=== PATIENT | male | born 1960 | race Caucasian/White ===

== ENCOUNTER 2019-01-08 10:46 | Inpatient (IN) | payer OTHER ==
--- OUTSIDE RECORDS SUMMARY | 2019-01-08 10:48 | XMS REPORT ---
:1960 [facility] Address [address] [place] [address] Dr. Garcia [address] [place] [id number] Care Team Providers Name Role Phone Unavailable Unavailable Unavailable Problems This patient has no known problems. Allergies, Adverse Reactions, Alerts This patient has no known allergies or adverse reactions. Medications This patient has no known medications.
[2019-01-08] MEDS ORDERED: ACETAMINOPHEN 500 MG TAB ONE (11:17)
--- NOTE | 2019-01-08 11:49 | RAD REPORT ---
EXAM DESCRIPTION: Samantha Single View01/08/2019 11:40 am CLINICAL HISTORY: Cough COMPARISON: January 06, 2019 FINDINGS: The lungs appear clear of acute infiltrate. The heart is normal size IMPRESSION: No acute abnormalities displayed
[2019-01-08 11:51] LABS: Absolute Lymphocytes (CBC) 0.6 K/uL (0.7-4.9); Basophils % 0.2 % (0-1.3); Hematocrit 44.8 % (39.6-49.0); Lymphocytes % 7.5 % (15.3-44.8); MPV 8.2 fL (7.6-11.3); RBC Red Blood Cell Count 4.96 M/uL (4.33-5.43)
[2019-01-08 11:53] LABS: Arterial Blood Carboxyhemoglob 1.3 % (0-1.5); Blood O2 Saturation 93.8 % (92-98.5)
[2019-01-08 11:57] LABS: Protime INR 0.88
[2019-01-08] MEDS ORDERED: CEFTRIAXONE/SWI 1gm 1 GM/10 ML SYR ONE (11:57)
[2019-01-08] MEDS ORDERED: VANCOMYCIN 1.5 GM in NA CHLORIDE 0.9% 500 ML IVPB ONE ×2 (12:00→18:00)
[2019-01-08 12:19] LABS: Blood Morphology Comment NOT SEEN (NOT SEEN); Platelet Estimate ADEQ
[2019-01-08 12:23] LABS: Albumin 3.6 g/dL (3.4-5.0); Bilirubin Direct 0.2 mg/dL (0-0.2); Bilirubin Total 0.6 mg/dL (0.2-1.0); CKMB Creatine Kinase MB 2.3 ng/mL (0.3-3.6); Protein, Total 7.2 g/dL (6.4-8.2); Troponin (Emerg Dept Use Only) 0.05 ng/mL (0.0-0.045)
--- NOTE | 2019-01-08 13:03 | RAD REPORT ---
EXAM DESCRIPTION: CT - Chest Abdomen Pelvis W Cont - 01/08/2019 12:47 pm CLINICAL HISTORY: Transient alteration of awareness, fever, cough, history of pneumonia, abdominal p ain COMPARISON: Noncontrast CT chest July 2014. TECHNIQUE: Following dynamic enhancement using 100 milliliters nonionic IV contrast, axial imaging o f the chest, abdomen and pelvis was performed. Biphasic technique was utilized through the abdomen. No oral contrast administered. All CT scans are performed using dose optimization technique as appropriate and may include automated exposure control or mA/KV adjustment according to patient size. FINDINGS: Scattered alveolar opacities are present in the mid and lower aspect of the left upper lob e. Airspace opacification is scattered throughout the left lower lobe. Motion degradation is present involving both lung gale. No significant lung parenchymal process on the right. No pleural effusion , pleural thickening or pneumothorax. No significant aortic or pulmonary arterial tree finding. Patie nt has a few small nonspecific mediastinal lymph nodes. These are not substantially different from 20 15. No chest wall mass or axillary lymphadenopathy. Heart size is upper normal to slightly enlarged. Left ventricular myocardium is slightly thickened. CT sensitivity is limited regarding myocardial ass essment. There is no pericardial effusion. The liver, spleen and pancreas show no suspicious findings. Gallbladder and biliary tree are unremark able. Gallstones can be occult on CT imaging. Symmetric renal function is seen with no mass or hydro nephrosis. A small cyst present posterior mid left kidney. There is a large exophytic 6 centimeter be nign cyst projecting from the upper pole of the right kidney. No dilated bowel loops or focal bowel wall thickening. No acute GI findings seen. Moderate stool volu me is present throughout the colon without an acute colon process seen. The appendix is normal. Bony degenerative changes are present. No acute finding in the thoracic spine. There are fusion grace es spanning L3-S1. No hardware fracture. Graft material is present in the lower [address] findings that would elevate probability of discitis or osteomyelitis. Central canal detail is inheren tly limited. No significant vascular findings. IMPRESSION: Small to moderate left upper lobe pneumonia findings. Moderate left lower lobe pneumonia findings. No acute findings seen in the abdomen or pelvis. Nonacute findings are detailed in the body of the re port. Patient has extensive postsurgical change in the mid and lower lumbar spine. Central canal detail is inherently limited. The CT findings do not show destructive changes that would raise concerns for dis citis or osteomyelitis.
--- NOTE | 2019-01-08 13:26 | ER ---
Nurse's Notes [facility] Name: Giovanny Barksdale Age: 58 yrs Sex: Male : 1960 Arrival Date: 01/08/2019 Time: 10:48 Bed 16 Private MD: Diagnosis: Pneumonia, unspecified organism;Failed outpatient treatment: pneumonia, early sepsis Presentation: 01/08 10:50 Presenting complaint: Patient states: i feel like disoriented, i dont feel good today, hj i have a fever with 99.8 and i was shaking; reports cough; was treated with pneumonia with Levaquin early this year;. Transition of care: patient was not received from another setting of care. Onset of symptoms was January 08, 2019. Risk Assessment: Do you want to hurt yourself or someone else? Patient reports no desire to harm self or others. Initial Sepsis Screen: Does the patient meet any 2 criteria? No. Patient's initial sepsis screen is negative. Does the patient have a suspected source of infection?. Care prior to arrival: None. 10:50 Method Of Arrival: Ambulatory 10:50 Acuity: CHRIS 3 10:55 Initial Sepsis Screen: Does the patient meet any 2 criteria? RR > 20 per min. HR > 90 hj bpm. Does the patient have a suspected source of infection? Yes: Productive cough/pneumonia No. Patient's initial sepsis screen is negative. Triage Assessment: 11:00 General: Appears distressed, comfortable, obese, Behavior is cooperative, listless. bp Historical: - Allergies: 10:54 Sulfa (Sulfonamide Antibiotics); hj - PMHx: 10:54 Asthma; Gout; Hyperlipidemia; Hypertension; hj - PSHx: 10:54 back surgery; hj - Immunization history:: Adult Immunizations. - Social history:: Smoking status: Patient/guardian denies using tobacco. - Ebola Screening: : No symptoms or risks identified at this time. Screenin:09 Abuse screen: Denies threats or abuse. Denies injuries from another. Nutritional aj screening: No deficits noted. Tuberculosis screening: No symptoms or risk factors identified. Fall Risk None identified. Assessment: 11:07 General: Appears in no apparent distress. comfortable, Behavior is calm, cooperative, aj appropriate for age. Pain: Denies pain. Neuro: Level of Consciousness is awake, alert, obeys commands, Oriented to person, place, time, situation, Appropriate for age. Respiratory: Reports shortness of breath at rest cough that is productive, Sputum is blood streaked, Derm: Skin is intact, is healthy with good turgor, Skin is pink, warm \T\ dry. normal. 13:43 Reassessment: Patient appears in no apparent distress at this time. No changes from aj previously documented assessment. Patient and/or family updated on plan of care and expected duration. Pain level reassessed. Patient is alert, oriented x 3, equal unlabored respirations, skin warm/dry/pink. Patient denies pain at this time. Vital Signs: 10:49 BP 137 / 55; Pulse 98; Resp 20; Temp 101.8(TE); Pulse Ox 90% on R/A; Weight 116.12 kg; hj Height 6 ft. 2 in. (187.96 cm); 11:54 BP 137 / 53; Pulse 81; Resp 12; Pulse Ox 94% on 2 lpm NC; aj 13:43 BP 124 / 54; Pulse 78; Resp 22; Pulse Ox 96% on 2 lpm NC; aj 14:24 BP 133 / 64; Pulse 81; Resp 13; Temp 98.9; Pulse Ox 97% ; bp 10:49 Body Mass Index 32.87 (116.12 kg, 187.96 cm) ED Course: 10:48 Patient arrived in ED. as 10:49 Alf Macario MD is Attending Physician. kdr 10:54 Triage completed. hj 10:54 Arm band placed on left wrist. hj 10:56 Kristina Horowitz, RN is Primary Nurse. aj 11:00 Patient has correct armband on for positive identification. Bed in low position. Call bp light in reach. Side rails up X2. 11:26 Inserted saline lock: 22 gauge in right upper arm, using aseptic technique. Blood aj collected. 11:40 EKG done, by ED staff, reviewed by Alf Macario MD. dh3 11:41 Chest Single View XRAY In Process Unspecified. EDMS 12:14 Notified ED physician of a critical lab result(s). lactate 2.4. hb 12:48 CT Chest, Abdomen, Pelvis - W/Contrast In Process Unspecified. EDMS 13:18 Randolph Garcia MD is Hospitalizing Provider. kdr 14:25 No provider procedures requiring assistance completed. Patient admitted, IV remains in bp place. Administered Medications: 11:19 Drug: Tylenol 1000 mg Route: PO; 12:30 Follow up: Response: Temperature is decreased bp 11:53 Drug: Rocephin - (cefTRIAXone) 1 grams Route: IVPB; Infused Over: 30 mins; Site: right aj antecubital; 14:21 Follow up: IV Status: Completed infusion; IV Intake: 20ml bp 12:13 Drug: vancoMYCIN 1.5 grams Route: IVPB; Rate: calculated rate; Site: right antecubital; aj 14:22 Follow up: IV Status: Infusion continued upon admission bp Intake: 14:21 IV: 20ml; Total: 20ml. bp Outcome: 13:25 Decision to Hospitalize by Provider. kdr 14:26 Admitted to Med/surg accompanied by tech, family with patient, via stretcher, room 409, bp with oxygen, with chart, Report called to ANKIT RIZVI 14:26 Condition: stable 14:26 Instructed on the need for admit. 14:34 Patient left the ED. bp Signatures: Dispatcher [employer] EDKristina Verduzco, RN RN Alf Kumar MD MD kdr Martinez, Amelia as Joaquin, Henry, RN RN Flaca Montano, DMITRI RIZVI Fartun Garber [facility] Wolfgang Duque, RN RN bp Corrections: (The following items were deleted from the chart) 10:55 10:50 Onset of symptoms was January 08, 2019 maribell reyna
--- NOTE | 2019-01-08 13:26 | EDPHYS ---
Physician Documentation [facility] Name: Giovanny Hestu Age: 58 yrs Sex: Male : 1960 Arrival Date: 01/08/2019 Time: 10:48 Bed 16 Private MD: ED Physician Alf Macario HPI: 01/08 15:22 This 58 yrs old Male presents to ER via Ambulatory with complaints of kdr weakness and AMS/fever. 15:22 The patient has been on intermittent abx for the last six weeks. Three days ago, he was kdr switched to Amoxicillin from Levaquin by Dr. Diane and has since had steady decline in his overall status. Today, he is mildly confused and has had a fever. His states that when he gets sick . Onset: The symptoms/episode began/occurred gradually, 3 day(s) ago. Severity of symptoms: At their worst the symptoms were moderate incapacitating in the emergency department the symptoms are unchanged. The patient has not experienced similar symptoms in the past. The patient has been recently seen by a physician: the patient's primary care provider. Historical: - Allergies: 10:54 Sulfa (Sulfonamide Antibiotics); hj - PMHx: 10:54 Asthma; Gout; Hyperlipidemia; Hypertension; hj - PSHx: 10:54 back surgery; hj - Immunization history:: Adult Immunizations. - Social history:: Smoking status: Patient/guardian denies using tobacco. - Ebola Screening: : No symptoms or risks identified at this time. ROS: 15:22 Constitutional: Negative for fever, chills, and weight loss, Eyes: Negative for injury, kdr pain, redness, and discharge, Neck: Negative for injury, pain, and swelling, Cardiovascular: Negative for chest pain, palpitations, and edema, Abdomen/GI: Negative for abdominal pain, nausea, vomiting, diarrhea, and constipation, Back: Negative for injury and pain, : Negative for injury, bleeding, discharge, and swelling, MS/Extremity: Negative for injury and deformity, Skin: Negative for injury, rash, and discoloration, Psych: Negative for depression, anxiety, suicide ideation, homicidal ideation, and hallucinations, Allergy/Immunology: Negative for hives, rash, and allergies, Endocrine: Negative for neck swelling, polydipsia, polyuria, polyphagia, and marked weight changes, Hematologic/Lymphatic: Negative for swollen nodes, abnormal bleeding, and unusual bruising. 15:22 Respiratory: Positive for cough, with green sputum, dyspnea on exertion, shortness of breath, at rest. Negative for hemoptysis. 15:22 Neuro: Positive for altered mental status, weakness, Negative for headache, speech changes, syncope, near syncope. Exam: 15:22 Constitutional: This is a well developed, well nourished patient who is awake, alert, kdr and in mild distress. Head/Face: Normocephalic, atraumatic. Eyes: Pupils equal round and reactive to light, extra-ocular motions intact. Lids and lashes normal. Conjunctiva and sclera are non-icteric and not injected. Cornea within normal limits. Periorbital areas with no swelling, redness, or edema. Neck: Trachea midline, no thyromegaly or masses palpated, and no cervical lymphadenopathy. Supple, full range of motion without nuchal rigidity, or vertebral point tenderness. No Meningismus. Chest/axilla: Normal chest wall appearance and motion. Nontender with no deformity. No lesions are appreciated. Cardiovascular: Regular rate and rhythm with a normal S1 and S2. No gallops, murmurs, or rubs. Normal PMI, no JVD. No pulse deficits. Abdomen/GI: Soft, non-tender, with normal bowel sounds. No distension or tympany. No guarding or rebound. No evidence of tenderness throughout. Back: No spinal tenderness. No costovertebral tenderness. Full range of motion. Skin: Warm, dry with normal turgor. Normal color with no rashes, no lesions, and no evidence of cellulitis. MS/ Extremity: Pulses equal, no cyanosis. Neurovascular intact. Full, normal range of motion. Psych: Awake, alert, with orientation to person, place and time. Behavior, mood, and affect are within normal limits. 15:22 Respiratory: the patient does not display signs of respiratory distress, Respirations: normal, Breath sounds: rales, that are mild, are scattered, stridor, is not appreciated. Vital Signs: 10:49 BP 137 / 55; Pulse 98; Resp 20; Temp 101.8(TE); Pulse Ox 90% on R/A; Weight 116.12 kg; hj Height 6 ft. 2 in. (187.96 cm); 11:54 BP 137 / 53; Pulse 81; Resp 12; Pulse Ox 94% on 2 lpm NC; aj 13:43 BP 124 / 54; Pulse 78; Resp 22; Pulse Ox 96% on 2 lpm NC; aj 14:24 BP 133 / 64; Pulse 81; Resp 13; Temp 98.9; Pulse Ox 97% ; bp 10:49 Body Mass Index 32.87 (116.12 kg, 187.96 cm) hj MDM: 13:25 Patient medically screened. kdr 15:22 Data reviewed: vital signs, lab test result(s), radiologic studies. Counseling: I had a kdr detailed discussion with the patient and/or guardian regarding: the historical points, exam findings, and any diagnostic results supporting the discharge/admit diagnosis, lab results, radiology results, the need for further work-up and treatment in the hospital. 01/08 11:18 Order name: Basic Metabolic Panel; Complete Time: 12:27 01/08 11:18 Order name: Blood Culture Adult (2) 01/08 11:18 Order name: CBC with Diff; Complete Time: 12:27 01/08 11:18 Order name: Ckmb; Complete Time: 12:27 01/08 11:18 Order name: CPK; Complete Time: 12:27 01/08 11:18 Order name: Lactate; Complete Time: 12:16 01/08 11:18 Order name: LFT's; Complete Time: 12:27 01/08 11:18 Order name: Lipase; Complete Time: 12:27 01/08 11:18 Order name: Procalcitonin; Complete Time: 12:27 01/08 11:18 Order name: Protime (+inr); Complete Time: 12:16 01/08 11:18 Order name: Ptt, Activated; Complete Time: 12:16 01/08 11:18 Order name: Troponin (emerg Dept Use Only); Complete Time: 12:27 01/08 11:18 Order name: Urine Microscopic Only 01/08 11:18 Order name: Chest Single View XRAY; Complete Time: 11:57 01/08 11:18 Order name: Cardiac monitoring; Complete Time: 11:40 01/08 11:18 Order name: EKG - Nurse/Tech; Complete Time: 11:40 01/08 11:18 Order name: IV Saline Lock - Large Bore; Complete Time: 12:00 01/08 11:18 Order name: Labs collected and sent; Complete Time: 12:01 01/08 11:18 Order name: O2 Per Protocol; Complete Time: 12:01 01/08 11:18 Order name: O2 Sat Monitoring; Complete Time: 12:01 01/08 11:18 Order name: Sputum Culture 01/08 11:29 Order name: ABG; Complete Time: 12:16 [facility] 01/08 11:56 Order name: CT Chest, Abdomen, Pelvis - W/Contrast; Complete Time: 13:05 01/08 12:21 Order name: Manual Differential; Complete Time: 12:27 EDMS Administered Medications: 11:19 Drug: Tylenol 1000 mg Route: PO; aj 12:30 Follow up: Response: Temperature is decreased bp 11:53 Drug: Rocephin - (cefTRIAXone) 1 grams Route: IVPB; Infused Over: 30 mins; Site: right aj antecubital; 14:21 Follow up: IV Status: Completed infusion; IV Intake: 20ml bp 12:13 Drug: vancoMYCIN 1.5 grams Route: IVPB; Rate: calculated rate; Site: right antecubital; aj 14:22 Follow up: IV Status: Infusion continued upon admission bp Disposition: 01/08/19 13:25 Hospitalization ordered by Randolph Garcia for Inpatient Admission. Preliminary diagnosis are Pneumonia, unspecified organism, Failed outpatient treatment: pneumonia, early sepsis. - Bed requested for Telemetry/MedSurg (Inpatient). - Status is Inpatient Admission. bp - Condition is Fair. - Problem is an ongoing problem. - Symptoms have improved. UTI on Admission? No Signatures: Dispatcher [employer] EDPR Kristina Horowitz RN RN aj Rittger, Kevin, MD MD kdr Joaquin, Henry, RN RN hj Aguilar, Jose, RN RN ja1 Peltier, Brian, RN RN bp Corrections: (The following items were deleted from the chart) 11:24 11:21 LACTATE+C.LAB.BRZ ordered. EDPR EDMS 14:05 13:25 Hospitalization Ordered by Randolph Garcia MD for Inpatient Admission. Preliminary [facility] diagnosis is Pneumonia, unspecified organism; Failed outpatient treatment: pneumonia, early sepsis. Bed requested for Telemetry/MedSurg (Inpatient). Status is Inpatient Admission. Condition is Fair. Problem is an ongoing problem. Symptoms have improved. UTI on Admission? No. kdr 14:34 14:05 01/08/2019 13:25 Hospitalization Ordered by Randolph Garcia MD for Inpatient bp Admission. Preliminary diagnosis is Pneumonia, unspecified organism; Failed outpatient treatment: pneumonia, early sepsis. Bed requested for Telemetry/MedSurg (Inpatient). Status is Inpatient Admission. Condition is Fair. Problem is an ongoing problem. Symptoms have improved. UTI on Admission? No. ja1
[2019-01-08] MEDS ORDERED: NA CHLORIDE 0.9% 1,000 ML IV SCH (14:25)
[2019-01-08] MEDS: ENOXAPARIN 40 MG/0.4 ML SQ SCH (15:06)
--- NOTE | 2019-01-08 17:55 | P.HP ---
Patient History Date of Service: 01/08/19 Reason for admission: Pneumonia, failure of outpatient treatment History of Present Illness: This is a 58-year-old male with history of hypertension, hyperlipidemia, gout and asthma along with sleep apnea admitted for failed outpatient treatment for pneumonia. Per at bedside, patient has been very prone to pneumonia every year especially with bluish changes. This time around, since October, he has been dealing with some sort of upper respiratory tract infection. He has been seeing his primary care physician and he has undergone 2-3 rounds of oral Levaquin as an outpatient since October of 2018. This last round of Levaquin, he was the 01/24 in 2 and when he was asked to go see pulmonology and get imaging done. He did see Dr. Zelaya 3 days ago. He was switched from Levaquin to amoxicillin. He has taken 3 doses of amoxicillin and per , thinks this has gotten worse. He has been just generally feeling unwell, unable to sleep much, cough, fever and sputum production. This has progressively gotten worse for about 3-4 days now, therefore she brought patient to the emergency room. He was with increased lethargy. In the ER, patient's blood pressure was 137/55, heart rate of 98, respirations 20, temperature 101.8, satting 90% on room air with BMI of 32.87. His labs were remarkable for creatinine elevated at 1.56 and troponin elevated to 0.05. His blood gases were remarkable for carbon dioxide of 52.7 and oxygen levels of 69.8. His chest x-ray was normal however his CT chest was admitted with small to moderate left upper lobe pneumonia and moderate left lower lobe pneumonia. He was given vancomycin and Rocephin in the ER. He was then referred for admission for pneumonia and failure of outpatient treatment. And the time of my exam, patient was on BiPAP, hemodynamically stable. Allergies Sulfa (Sulfonamide Antibiotics) Allergy (Mild, Verified 01/08/19 17:17) Unknown dexamethasone Allergy (Verified 07/29/14 00:39) Itching Latex, Natural Rubber Allergy (Verified 07/29/14 00:39) Hives Home medications list reviewed: Yes Home Medications: RX: Alprazolam 2 mg PO QID 07/12/14 RX: Clonidine HCl [Catapres*] 0.3 mg PO TID 07/12/14 RX: Gabapentin 600 mg PO TID 07/12/14 RX: Febuxostat [Uloric] 80 mg PO DAILY 07/28/14 RX: Testost Cypionate [Depo-Testosterone*] 1 mg INJ EVERY 7TH DAY 07/28/14 RX: Tizanidine HCl 4 mg PO TID PRN 07/28/14 B100 Balanced 1 tab PO DAILY 07/29/14 RX: Cyanocobalamin (Vitamin B-12) [Vitamin B-12] 2,500 mcg PO DAILY 07/29/14 RX: Trazodone HCl [Desyrel] 150 mg PO BEDTIME 07/29/14 Amlodipine Besylate [Norvasc] 10 mg PO DAILY 01/08/19 Atorvastatin Calcium [Lipitor] 20 mg PO BEDTIME 01/08/19 Furosemide [Lasix] 40 mg PO DAILY 01/08/19 Meloxicam [Mobic] 15 mg PO DAILY 01/08/19 Methadone HCl [Dolophine] 10 mg PO TID 01/08/19 Montelukast Sodium [Singulair] 10 mg PO BEDTIME 01/08/19 RX: Sildenafil Citrate [Viagra] 1 tab PO DAILY 01/08/19 Thyroid Tab [Winfred Thyroid] 15 mg PO DAILY 01/08/19 Thyroid,Pork [Canvass Manager Thyroid] 90 mg PO DAILY 01/08/19 - Past Medical/Surgical History Has patient received pneumonia vaccine in the past: Yes Diabetic: No -: HTN -: ANXIETY -: CHRONIC BACK PROBLEMS -: PNEUMONIA -: HYPOTHYROIDISM -: SLEEP APNEA -: spinal fusion 2013 (l3-l5, S1) -: anuerysm 2007 - Social History Smoking Status: Never smoker Alcohol use: Yes CD- Drugs: No Caffeine use: Yes Place of Residence: Home Review of Systems 10-point ROS is otherwise unremarkable Physical Examination - Vital Signs Temperature: 98.9 F Blood Pressure: 133/64 Pulse: 81 Respirations: 13 - Physical Exam General: Alert, Oriented x3, Mild distress HEENT: Atraumatic, PERRLA, Mucous membr. moist/pink, EOMI, Sclerae nonicteric Neck: Supple, 2+ carotid pulse no bruit, No LAD, Without JVD or thyroid abnormality Respiratory: Dull, Crackles/rales, Expiratory wheezes, Inspiratory wheezes Cardiovascular: Normal S1 S2, Irregular heart rate/rhythm (Tachycardic) Gastrointestinal: Normal bowel sounds, No tenderness Musculoskeletal: No tenderness Integumentary: No rashes Neurological: Normal speech, Normal strength at 5/5 x4 extr, Normal tone, Normal affect Lymphatics: No axilla or inguinal lymphadenopathy - Studies Laboratory Data (last 24 hrs) 01/08/19 11:15: PT 10.4, INR 0.88, APTT 29.5 01/08/19 11:15: WBC 8.0, Hgb 15.2, Hct 44.8, Plt Count 161 01/08/19 11:15: Sodium 142, Potassium 4.0, BUN 25 H, Creatinine 1.56 H, Glucose 130 H, Total Bilirubin 0.6, AST 32, ALT 58, Alkaline Phosphatase 70, Lipase 65 L Microbiology Data (last 24 hrs): 01/08/19 09:45 Sputum Gram Stain - Final Assessment and Plan - Problems (Diagnosis) (1) Sepsis Current Visit: Yes Status: Acute Plan: Meets sepsis criteria: Temperature 101.8, tachycardic, tachypneic. Elevated creatinine and troponin (end-organ damage). -Suspected source: Pneumonia -gentle hydration; patient with a known CHF status, but currently is on Lasix p.o. -treat underlying disease process -monitor vital signs and a.m. labs Qualifiers: Sepsis type: sepsis due to unspecified organism Qualified Code(s): A41.9 - Sepsis, unspecified organism (2) Acute respiratory failure Current Visit: Yes Status: Acute Plan: Likely secondary to underlying pneumonia versus sleep apnea/CPAP malfunction -require BiPAP here. Wean as tolerated -pulmonology consulted, waiting recommendation -treat underlying pneumonia with IV antibiotics -repeat chest x-ray and ABG tomorrow Qualifiers: Respiratory failure complication: hypoxia and hypercapnia Qualified Code(s) : J96.01 - Acute respiratory failure with hypoxia; J96.02 - Acute respiratory failure with hypercapnia (3) Pneumonia Onset Date: 07/29/14 Current Visit: No Status: Acute Plan: Patient with left lower and upper lobe pneumonia noted on chest x-ray. -higher risk for pseudomonal, MRSA and drug resistant strep pneumo due to 3+ rounds of oral Levaquin treatment and the past 3 months. -will start patient on IV vancomycin and cefepime for pseudomonal and drug resistant strep coverage along with MRSA. Pharmacy to dose -cultures pending; will adjust antibiotics accordingly -repeat chest x-ray tomorrow -pulmonology consulted, awaiting recommendation Qualifiers: Pneumonia type: due to unspecified organism Laterality: left Lung location: lower lobe of lung Qualified Code(s): J18.1 - Lobar pneumonia, unspecified organism (4) Failure of outpatient treatment Current Visit: Yes Status: Acute (5) LE (acute kidney injury) Current Visit: Yes Status: Acute Plan: Gentle IV hydration. -monitor volume status as patient without a diagnosis of CHF on Lasix. -no evidence of volume overload at this time (6) Elevated troponin Current Visit: Yes Status: Acute Plan: Likely secondary to demand mismatch -trend troponins. Doubt ACS, as patient not complaining of chest pain at this time. (7) Anxiety Onset Date: 07/13/14 Current Visit: No Status: Chronic Plan: Restart home medications (8) Hypertension Onset Date: 07/13/14 Current Visit: No Status: Chronic Plan: Stable, restart home medication Qualifiers: Hypertension type: essential hypertension Qualified Code(s): I10 - Essential (primary) hypertension (9) Sleep apnea Onset Date: 07/13/14 Current Visit: No Status: Chronic Plan: states patient on CPAP at home for apnea and due to underlying structural abnormality (vocal cords) -she states he is compliant with it. -here with patient requiring BiPAP. On shows is secondary to underlying pneumonia versus some structural abnormality versus progressive disease. Pulmonology consulted, awaiting recommendations -patient does have a history of acute delirium/altered mental status with even slight increase in CO2 levels. Qualifiers: Sleep apnea type: unspecified type Qualified Code(s): G47.30 - Sleep apnea , unspecified (10) Hyperlipidemia Current Visit: No Status: Chronic Qualifiers: Hyperlipidemia type: unspecified Qualified Code(s): E78.5 - Hyperlipidemia , unspecified (11) Gout Current Visit: No Status: Chronic Qualifiers: Gout site: unspecified site Gout etiology: unspecified cause Chronicity: unspecified Qualified Code(s): M10.9 - Gout, unspecified (12) Obesity (BMI 30.0-34.9) Current Visit: No Status: Chronic - Plan DVT prophylaxis: Lovenox GI prophylaxis: None Diet: Heart healthy Disposition: Admit to floor with tele. Awaiting with pulmonology recommendations as well as symptomatic improvement. - Advance Directives Does patient have a Living Will: Yes Does patient have a Durable POA for Healthcare: Yes
[2019-01-08] MEDS: NA CHLORIDE 0.9% 1,000 ML IV SCH (18:00)
[2019-01-08] MEDS: CEFEPIME/SWI 1gm 10 ML IVP SCH (20:23)
[2019-01-08] MEDS: GABAPENTIN 300 MG CAP PO SCH (20:24)
[2019-01-08] MEDS: MONTELUKAST 10 MG TAB PO SCH (20:24)
[2019-01-08] MEDS: ATORVASTATIN 20 MG TAB PO SCH (20:24)
[2019-01-08] MEDS: METHADONE HCL 10 MG TAB PO SCH (20:24)
[2019-01-08] MEDS: ALPRAZOLAM 1 MG TABLET PO SCH (20:24)
[2019-01-08] MEDS: CLONIDINE HCL 0.3 MG TAB PO SCH (20:25)
[2019-01-08] MEDS: ALBUTEROL 2.5 MG/3 ML NEB SOL NEB PRN (20:40)
[2019-01-08] MEDS ORDERED: CEFEPIME 1 GM/VIAL IV SCH (21:00)
[2019-01-08] MEDS ORDERED: VANCOMYCIN 1.25 GM in NA CHLORIDE 0.9% 250 ML IVPB SCH (21:00)
[2019-01-08] MEDS ORDERED: HOME MED 1 EA UNK (Alprazolam [Alprazolam] 2 MG) PO SCH (21:00)
[2019-01-08] MEDS ORDERED: CLONIDINE HCL 0.3 MG PO SCH (21:00)
[2019-01-09 04:49] LABS: Absolute Lymphocytes (CBC) 1.7 K/uL (0.7-4.9); Basophils % 0.2 % (0-1.3); Hematocrit 37.6 % (39.6-49.0); Lymphocytes % 13.5 % (15.3-44.8); MPV 8.7 fL (7.6-11.3); RBC Red Blood Cell Count 4.19 M/uL (4.33-5.43)
[2019-01-09 05:04] LABS: Albumin 3.2 g/dL (3.4-5.0); Bilirubin Total 0.7 mg/dL (0.2-1.0); Potassium 4.6 mmol/L (3.5-5.1); Protein, Total 6.4 g/dL (6.4-8.2)
[2019-01-09] MEDS: THYROID 30 MG TAB PO SCH (05:59)
[2019-01-09] MEDS: NA CHLORIDE 0.9% 1,000 ML IV SCH ×3 (06:04→20:48)
[2019-01-09] MEDS ORDERED: THYROID 30 MG TAB PO SCH (06:30)
--- NOTE | 2019-01-09 06:43 | EKG ---
Test Date: 2019-01-08 Test Time: 11:40:33 [employer]: LAUREN MEASUREMENT RESULTS: Intervals: Rate: 79 KS: 162 QRSD: 96 QT: 368 QTc: 421 [place]: P: 56 KS: 162 QRS: 20 T: 77 INTERPRETIVE STATEMENTS: Normal sinus rhythm Nonspecific T wave abnormality Abnormal ECG Compared to ECG 02/08/2017 10:19:02 Sinus tachycardia no longer present Possible ischemia no longer present T-wave abnormality still present Electronically Signed On 01-09-19 06:41:42 CDT by Bryan Greer
[2019-01-09] MEDS ORDERED: FEBUXOSTAT 80 MG PO SCH (09:00)
[2019-01-09] MEDS ORDERED: THYROID PORK 90 MG PO SCH (09:00)
[2019-01-09] MEDS ORDERED: CYANOCOBALAMIN 2500 MCG PO SCH (09:00)
[2019-01-09] MEDS ORDERED: MELOXICAM 15 MG PO SCH (09:00)
--- NOTE | 2019-01-09 09:19 | RAD REPORT ---
EXAM DESCRIPTION: Samantha Single View01/09/2019 6:07 am CLINICAL HISTORY: Chest pain COMPARISON: January 08, 2019 FINDINGS: Mild left pulmonary opacities without significant change Right lung appears clear of acute infiltrate. The heart mildly enlarged
[2019-01-09] MEDS: CEFEPIME/SWI 1gm 10 ML IVP SCH ×2 (10:24→20:44)
[2019-01-09] MEDS: ALPRAZOLAM 1 MG TABLET PO SCH ×4 (10:27→20:45)
[2019-01-09] MEDS: FUROSEMIDE 40 MG TABLET PO SCH (10:27)
[2019-01-09] MEDS: CLONIDINE HCL 0.3 MG TAB PO SCH ×3 (10:27→20:46)
[2019-01-09] MEDS: GABAPENTIN 300 MG CAP PO SCH ×3 (10:27→20:44)
[2019-01-09] MEDS: CYANOCOBALAMIN 1,000 MCG TAB PO SCH (10:28)
[2019-01-09] MEDS: AMLODIPINE 10 MG TAB PO SCH (10:28)
[2019-01-09] MEDS: ENOXAPARIN 40 MG/0.4 ML SQ SCH (10:31)
[2019-01-09] MEDS: METHADONE HCL 10 MG TAB PO SCH ×3 (10:32→20:45)
[2019-01-09] MEDS: MELOXICAM 7.5 MG TAB PO SCH (10:33)
--- NOTE | 2019-01-09 12:59 | P.PN ---
Subjective Date of Service: 01/09/19 Chief Complaint: Pneumonia, failure of outpatient treatment Subjective: Improving Patient seen and examined at bedside. at bedside. Chart reviewed and case discussed with nursing staff. Patient improves, more alert oriented, but not back to baseline and. Off of BiPAP overnight. Afebrile overnight, hemodynamically stable. No acute events noted overnight. Review of Systems 10-point ROS is otherwise unremarkable Physical Examination - Vital Signs Temperature: 98.6 F Blood Pressure: 120/57 Pulse: 58 Respirations: 18 Pulse Ox (%): 98 - Physical Exam General: Alert, In no apparent distress, Oriented x3 HEENT: Atraumatic, PERRLA, EOMI Neck: Supple, JVD not distended Respiratory: Dull, Crackles/rales Cardiovascular: Regular rate/rhythm, Normal S1 S2 Gastrointestinal: Normal bowel sounds, No tenderness Musculoskeletal: No tenderness Integumentary: No rashes Neurological: Normal speech, Normal tone, Normal affect Lymphatics: No axilla or inguinal lymphadenopathy - Studies Microbiology Data (last 24 hrs): 01/08/19 09:45 Sputum Gram Stain - Final Assessment And Plan - Current Problems (Diagnosis) (1) Sepsis Current Visit: Yes Status: Acute Plan: Improving. Meets sepsis criteria: Temperature 101.8, tachycardic, tachypneic. Elevated creatinine and troponin (end-organ damage). -Suspected source: Pneumonia -gentle hydration; patient with a known CHF status, but currently is on Lasix p.o. -treat underlying disease process -monitor vital signs and a.m. labs Qualifiers: Sepsis type: sepsis due to unspecified organism Qualified Code(s): A41.9 - Sepsis, unspecified organism (2) Acute respiratory failure Current Visit: Yes Status: Acute Plan: Improving. Likely secondary to underlying pneumonia versus sleep apnea/CPAP malfunction -off of BiPAP overnight. Continue to Wean as tolerated -treat underlying pneumonia with IV antibiotics Qualifiers: Respiratory failure complication: hypoxia and hypercapnia Qualified Code(s) : J96.01 - Acute respiratory failure with hypoxia; J96.02 - Acute respiratory failure with hypercapnia (3) Pneumonia Onset Date: 07/29/14 Current Visit: No Status: Acute Plan: Patient with left lower and upper lobe pneumonia noted on chest x-ray. -higher risk for pseudomonal, MRSA and drug resistant strep pneumo due to 3+ rounds of oral Levaquin treatment in the past 3 months. -continue IV vancomycin and cefepime for pseudomonal and drug resistant strep coverage along with MRSA. Pharmacy to dose -cultures pending; no growth till date. will adjust antibiotics accordingly Qualifiers: Pneumonia type: due to unspecified organism Laterality: left Lung location: lower lobe of lung Qualified Code(s): J18.1 - Lobar pneumonia, unspecified organism (4) Failure of outpatient treatment Current Visit: Yes Status: Acute (5) LE (acute kidney injury) Current Visit: Yes Status: Acute Plan: Gentle IV hydration. Improving -monitor volume status as patient without a diagnosis of CHF on Lasix. -no evidence of volume overload at this time (6) Elevated troponin Current Visit: Yes Status: Resolved Plan: Likely secondary to demand mismatch. Resolved -trend troponins. Doubt ACS, as patient not complaining of chest pain at this time. (7) Anxiety Onset Date: 07/13/14 Current Visit: No Status: Chronic Plan: Continue home medications (8) Hypertension Onset Date: 07/13/14 Current Visit: No Status: Chronic Plan: Stable, continue home medication Qualifiers: Hypertension type: essential hypertension Qualified Code(s): I10 - Essential (primary) hypertension (9) Sleep apnea Onset Date: 07/13/14 Current Visit: No Status: Chronic Plan: states patient on CPAP at home for apnea and due to underlying structural abnormality (vocal cords) -she states he is compliant with it. -likely secondary to underlying pneumonia versus some structural abnormality versus progressive disease. -patient does have a history of acute delirium/altered mental status with even slight increase in CO2 levels. Qualifiers: Sleep apnea type: unspecified type Qualified Code(s): G47.30 - Sleep apnea , unspecified (10) Hyperlipidemia Current Visit: No Status: Chronic Qualifiers: Hyperlipidemia type: unspecified Qualified Code(s): E78.5 - Hyperlipidemia , unspecified (11) Gout Current Visit: No Status: Chronic Qualifiers: Gout site: unspecified site Gout etiology: unspecified cause Chronicity: unspecified Qualified Code(s): M10.9 - Gout, unspecified (12) Obesity (BMI 30.0-34.9) Current Visit: No Status: Chronic - Plan DVT prophylaxis: Lovenox GI prophylaxis: None Diet: Heart healthy Disposition: Pending symptomatic improvement
[2019-01-09] MEDS: VANCOMYCIN 2 GM in NA CHLORIDE 0.9% 500 ML IVPB SCH (17:52)
[2019-01-09] MEDS: ATORVASTATIN 20 MG TAB PO SCH (20:45)
[2019-01-09] MEDS: MONTELUKAST 10 MG TAB PO SCH (20:45)
[2019-01-10] MEDS: ACETAMINOPHEN 500 MG TAB PO PRN ×2 (01:13→05:05)
[2019-01-10] MEDS: THYROID 30 MG TAB PO SCH (05:05)
[2019-01-10 05:47] LABS: Absolute Lymphocytes (CBC) 1.2 K/uL (0.7-4.9); Basophils % 0.2 % (0-1.3); Hematocrit 34.7 % (39.6-49.0); Lymphocytes % 12.4 % (15.3-44.8)
[2019-01-10 05:59] LABS: Albumin 3.1 g/dL (3.4-5.0); Bilirubin Total 0.9 mg/dL (0.2-1.0); Potassium 4.5 mmol/L (3.5-5.1); Protein, Total 6.3 g/dL (6.4-8.2)
[2019-01-10] MEDS: ALPRAZOLAM 1 MG TABLET PO SCH ×4 (08:31→20:44)
[2019-01-10] MEDS: CLONIDINE HCL 0.3 MG TAB PO SCH ×3 (08:31→20:45)
[2019-01-10] MEDS: GABAPENTIN 300 MG CAP PO SCH ×3 (08:31→20:44)
[2019-01-10] MEDS: AMLODIPINE 10 MG TAB PO SCH (08:32)
[2019-01-10] MEDS: CYANOCOBALAMIN 1,000 MCG TAB PO SCH (08:33)
[2019-01-10] MEDS: FUROSEMIDE 40 MG TABLET PO SCH (08:34)
[2019-01-10] MEDS: ENOXAPARIN 40 MG/0.4 ML SQ SCH (08:35)
[2019-01-10] MEDS: METHADONE HCL 10 MG TAB PO SCH ×3 (08:35→20:45)
[2019-01-10] MEDS: CEFEPIME/SWI 1gm 10 ML IVP SCH ×2 (08:36→20:44)
[2019-01-10] MEDS: MELOXICAM 7.5 MG TAB PO SCH (08:48)
--- NOTE | 2019-01-10 11:34 | P.PN ---
Subjective Date of Service: 01/10/19 (Hospitalist) Chief Complaint: Pneumonia, failure of outpatient treatment Patient is delirious agitated the left lower lobe pneumonia Review of Systems General: Weakness Respiratory: Shortness of Breath Physical Examination - Vital Signs Temperature: 98.3 F Blood Pressure: 149/63 Pulse: 66 Respirations: 20 Pulse Ox (%): 85 - Physical Exam General: Alert, Oriented x3 Neck: Supple Respiratory: Clear to auscultation bilaterally Cardiovascular: No edema, Normal pulses - Studies Microbiology Data (last 24 hrs): 01/08/19 09:45 Sputum Gram Stain - Final 01/08/19 09:45 Sputum Culture & Sensitivity - Final Assessment & Plan - Problems (Diagnosis) (1) Pneumonia Onset Date: 07/29/14 Current Visit: No Status: Acute Plan: Patient is 58 years of age failed outpatient therapy with antibiotics admitted with altered mental status delirium CT scan showed impressive left lower lobe pneumonia all his cultures negative so far he continues to remain confused agitated patient was hypoxic hypercapnic white count norm chemistries reviewed pro calcitonin level is negative still running a borderline temperature renal function improving is 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
[2019-01-10] MEDS: predniSONE 20 MG TAB PO SCH ×2 (11:57→20:44)
[2019-01-10 12:10] LABS: Arterial Blood Carboxyhemoglob 2.1 % (0-1.5); Blood Gas Oxyhemoglobin 94.6 % (94-97)
--- NOTE | 2019-01-10 13:54 | RAD REPORT ---
EXAM DESCRIPTION: Samantha Pa And Lat (2 Views)01/10/2019 1:45 pm CLINICAL HISTORY: Cough COMPARISON: January 09 FINDINGS: No change in mild left lung opacities. Right lung appears clear. The heart remains enlarge d IMPRESSION: No change in a mild left pneumonia
[2019-01-10] MEDS: HALOPERIDOL LACT 5 MG/ML INJ IV PRN (17:35)
[2019-01-10] MEDS: VANCOMYCIN 2 GM in NA CHLORIDE 0.9% 500 ML IVPB SCH ×2 (17:45→18:00)
[2019-01-10] MEDS: ALBUTEROL 2.5 MG/3 ML NEB SOL NEB PRN (19:45)
[2019-01-10] MEDS: MONTELUKAST 10 MG TAB PO SCH (20:45)
[2019-01-11] MEDS: HALOPERIDOL LACT 5 MG/ML INJ IV PRN (02:26)
[2019-01-11] MEDS: THYROID 30 MG TAB PO SCH (05:24)
[2019-01-11 05:43] VITALS: BMI 33.6
[2019-01-11 06:02] LABS: Absolute Lymphocytes (CBC) 0.7 K/uL (0.7-4.9); Basophils % 0.1 % (0-1.3); Hematocrit 40.3 % (39.6-49.0); Lymphocytes % 8.1 % (15.3-44.8); MPV 8.2 fL (7.6-11.3); RBC Red Blood Cell Count 4.53 M/uL (4.33-5.43)
[2019-01-11 06:29] LABS: Albumin 3.2 g/dL (3.4-5.0); Bilirubin Total 0.8 mg/dL (0.2-1.0); Magnesium 2.6 mg/dL (1.8-2.4); Phosphorus 2.6 mg/dL (2.5-4.9); Potassium 4.7 mmol/L (3.5-5.1); Protein, Total 7.4 g/dL (6.4-8.2)
[2019-01-11 07:17] LABS: Blood Morphology Comment NOT SEEN (NOT SEEN); Platelet Estimate ADEQ
--- NOTE | 2019-01-11 08:26 | P.PN ---
Subjective Date of Service: 01/11/19 (Hospitalist) Chief Complaint: Pneumonia altered mental status Patient was transferred from the floor due to agitation respiratory failure he is more alert responsive cooperative feeling better less agitated Review of Systems General: Weakness Respiratory: Shortness of Breath Physical Examination - Vital Signs Temperature: 97.4 F Blood Pressure: 133/61 Pulse: 59 Respirations: 13 Pulse Ox (%): 98 - Physical Exam General: Alert, In no apparent distress, Oriented x3 Neck: Supple Respiratory: Clear to auscultation bilaterally Cardiovascular: No edema, Regular rate/rhythm, Normal S1 S2 - Studies Microbiology Data (last 24 hrs): 01/08/19 09:45 Sputum Gram Stain - Final 01/08/19 09:45 Sputum Culture & Sensitivity - Final Assessment & Plan - Problems (Diagnosis) (1) Pneumonia Onset Date: 07/29/14 Current Visit: No Status: Acute Plan: Patient admitted with pneumonia hypoxic hypercapnic respiratory failure blood cultures are all negative white count is declining vital signs stable patient is afebrile chemistries unremarkable pro calcitonin level is also declining plan to transfer to the floor is 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
[2019-01-11] MEDS: CYANOCOBALAMIN 1,000 MCG TAB PO SCH (09:19)
[2019-01-11] MEDS: METHADONE HCL 10 MG TAB PO SCH ×3 (09:21→21:54)
[2019-01-11] MEDS: CLONIDINE HCL 0.3 MG TAB PO SCH ×3 (09:22→21:57)
[2019-01-11] MEDS: AMLODIPINE 10 MG TAB PO SCH (09:22)
[2019-01-11] MEDS: MELOXICAM 7.5 MG TAB PO SCH (09:22)
[2019-01-11] MEDS: GABAPENTIN 300 MG CAP PO SCH ×3 (09:23→21:55)
[2019-01-11] MEDS: FUROSEMIDE 40 MG TABLET PO SCH (09:23)
[2019-01-11] MEDS: predniSONE 20 MG TAB PO SCH ×2 (09:24→21:57)
[2019-01-11] MEDS: CEFEPIME/SWI 1gm 10 ML IVP SCH ×2 (09:25→21:54)
[2019-01-11] MEDS: ALPRAZOLAM 1 MG TABLET PO SCH ×4 (09:25→21:55)
[2019-01-11] MEDS: ENOXAPARIN 40 MG/0.4 ML SQ SCH (09:26)
[2019-01-11] MEDS: VANCOMYCIN 2 GM in NA CHLORIDE 0.9% 500 ML IVPB SCH (13:44)
[2019-01-11] MEDS ORDERED: VANCOMYCIN 2 GM in NA CHLORIDE 0.9% 500 ML IVPB SCH (18:00)
[2019-01-11] MEDS: ALBUTEROL 2.5 MG/3 ML NEB SOL NEB PRN (20:30)
[2019-01-11] MEDS: MONTELUKAST 10 MG TAB PO SCH (21:55)
[2019-01-12] MEDS: HALOPERIDOL LACT 5 MG/ML INJ IV PRN (03:24)
[2019-01-12] MEDS: VANCOMYCIN 2 GM in NA CHLORIDE 0.9% 500 ML IVPB SCH (04:59)
[2019-01-12] MEDS: THYROID 30 MG TAB PO SCH (05:00)
--- NOTE | 2019-01-12 07:51 | RAD REPORT ---
EXAM DESCRIPTION: RAD - Chest Single View - 01/12/2019 6:47 am CLINICAL HISTORY: Left lung pneumonia COMPARISON: January 10, January 09 TECHNIQUE: AP portable chest image was obtained 0634 hours . FINDINGS: Complete or near complete clearing of the left base pneumonia since January 10. No progressiv e right lung field finding. Heart size is prominent with normal vasculature. Heart size is stable. No measurable pleural effusion and no pneumothorax. No acute bony abnormality seen. No acute aortic fin dings suspected. IMPRESSION: Complete or near complete clearing of left lung base pneumonia.
[2019-01-12] MEDS: AMLODIPINE 10 MG TAB PO SCH (09:00)
[2019-01-12] MEDS: CLONIDINE HCL 0.3 MG TAB PO SCH (09:00)
[2019-01-12] MEDS: GABAPENTIN 300 MG CAP PO SCH (09:00)
[2019-01-12] MEDS: FUROSEMIDE 40 MG TABLET PO SCH (09:00)
[2019-01-12] MEDS: ENOXAPARIN 40 MG/0.4 ML SQ SCH (09:03)
[2019-01-12] MEDS: CYANOCOBALAMIN 1,000 MCG TAB PO SCH (09:04)
[2019-01-12] MEDS: METHADONE HCL 10 MG TAB PO SCH (09:05)
[2019-01-12] MEDS: predniSONE 20 MG TAB PO SCH (09:05)
[2019-01-12] MEDS: MELOXICAM 7.5 MG TAB PO SCH (09:05)
[2019-01-12] MEDS: ALPRAZOLAM 1 MG TABLET PO SCH (09:05)
[2019-01-12 09:35] VITALS: O2SAT 95
[2019-01-12] MEDS: CEFEPIME/SWI 1gm 10 ML IVP SCH (09:59)
[2019-01-12 12:10] VITALS: BP 158/71; TEMP 97.1
--- NOTE | 2019-01-12 12:10 | P.PN ---
Subjective Date of Service: 01/12/19 Chief Complaint: Pneumonia altered mental status Patient is doing much better today he is very alert oriented responsive cooperative Review of Systems Unremarkable Physical Examination - Vital Signs Temperature: 97.1 F Blood Pressure: 158/71 Pulse: 53 Respirations: 16 Pulse Ox (%): 95 - Physical Exam General: Alert, Oriented x3 Neck: Supple Respiratory: Normal air movement Cardiovascular: No edema, Regular rate/rhythm Assessment & Plan - Problems (Diagnosis) (1) Pneumonia Onset Date: 07/29/14 Current Visit: No Status: Acute Plan: Patient admitted with pneumonia altered mental status he is doing much better there is a negative pro calcitonin level is back to normal white count is declining discharge home he has an MRI scheduled by his primary care physician as an outpatient check room air pulse ox can discharge home on Augmentin and doxycycline I had ordered the prescribed him some Augmentin patient has a 2 courses of Levaquin before Qualifiers: Pneumonia type: due to unspecified organism Laterality: left Lung location: lower lobe of lung Qualified Code(s): J18.1 - Lobar pneumonia, unspecified organism
--- NOTE | 2019-01-12 16:13 | P.DS ---
Admission Date: 01/08/19 Discharge Date: 01/12/19 Disposition: ROUTINE DISCHARGE Discharge Condition: GOOD Reason for Admission: Pneumonia altered mental status Consultations: Pulmonology Brief History of Present Illness: This is a 58-year-old male with history of hypertension, hyperlipidemia, gout and asthma along with sleep apnea admitted for failed outpatient treatment for pneumonia. Per at bedside, patient has been very prone to pneumonia every year especially with bluish changes. This time around, since October, he has been dealing with some sort of upper respiratory tract infection. He has been seeing his primary care physician and he has undergone 2-3 rounds of oral Levaquin as an outpatient since October of 2018. This last round of Levaquin, he was the 01/24 in 2 and when he was asked to go see pulmonology and get imaging done. He did see Dr. Zelaya 3 days ago. He was switched from Levaquin to amoxicillin. He has taken 3 doses of amoxicillin and per , thinks this has gotten worse. He has been just generally feeling unwell, unable to sleep much, cough, fever and sputum production. This has progressively gotten worse for about 3-4 days now, therefore she brought patient to the emergency room. He was with increased lethargy. In the ER, patient's blood pressure was 137/55, heart rate of 98, respirations 20, temperature 101.8, satting 90% on room air with BMI of 32.87. His labs were remarkable for creatinine elevated at 1.56 and troponin elevated to 0.05. His blood gases were remarkable for carbon dioxide of 52.7 and oxygen levels of 69.8. His chest x-ray was normal however his CT chest was admitted with small to moderate left upper lobe pneumonia and moderate left lower lobe pneumonia. He was given vancomycin and Rocephin in the ER. He was then referred for admission for pneumonia and failure of outpatient treatment. And the time of my exam, patient was on BiPAP, hemodynamically stable. Hospital Course: Overall during the hospital stay patient remained stable Patient was initially admitted to the hospital for acute respiratory distress most likely secondary to hypercapnic hypoxic respiratory failure. Initially was placed on nasal cannula here in the hospital was started on IV antibiotics as well for possible pneumonia failed outpatient therapy. Patient had marked improvement in his symptoms after initiation of antibiotics. Pulmonology was consulted who recommended the patient be started on prednisone 10 b.i.d. and patient was transferred to the ICU due to intermittent confusion. Patient was monitored closely here in the ICU and was determined the patient has intermittent confusion and falls on the floor most likely secondary to polypharmacy as patient takes methadone Zyprexa several other sedatives at home and has been taking that here in the hospital. Patient and was educated extensively regarding the need to take medication as prescribed only. Family demonstrated understanding. Patient then was cleared by pulmonology to be discharged home on p.o. antibiotics and prednisone 10 mg b.i.d. to be taken at home. Patient will have follow up appointment with pulmonology in about 1-2 days post discharge. Patient had doxycycline along with Levaquin called in to the pharmacy to be picked up to take for his pneumonia. Vital Signs/Physical Exam: Temp Pulse Resp BP Pulse Ox 97.1 F 53 16 158/71 H 95 01/12/19 12:09 01/12/19 12:09 01/12/19 12:09 01/12/19 12:09 01/12/19 12:09 General: Alert, In no apparent distress HEENT: Atraumatic, PERRLA, EOMI Neck: Supple, JVD not distended Respiratory: Clear to auscultation bilaterally, Normal air movement Cardiovascular: Regular rate/rhythm, Normal S1 S2 Gastrointestinal: Normal bowel sounds, No tenderness Musculoskeletal: No tenderness Integumentary: No rashes Neurological: Normal speech, Normal tone, Normal affect Lymphatics: No axilla or inguinal lymphadenopathy Laboratory Data at Discharge: WBC 8.5 K/uL (4.3-10.9) 01/11/19 05:29 Hgb 13.8 g/dL (13.6-17.9) 01/11/19 05:29 Hct 40.3 % (39.6-49.0) D 01/11/19 05:29 Plt Count 175 K/uL (152-406) 01/11/19 05:29 PT 10.4 SECONDS (9.5-12.5) 01/08/19 11:15 INR 0.88 01/08/19 11:15 APTT 29.5 SECONDS (24.3-36.9) 01/08/19 11:15 Sodium 139 mmol/L (136-145) 01/11/19 05:29 Potassium 4.7 mmol/L (3.5-5.1) 01/11/19 05:29 BUN 13 mg/dL (7-18) 01/11/19 05:29 Creatinine 0.90 mg/dL (0.55-1.3) 01/11/19 05:29 Glucose 119 mg/dL (74-106) H 01/11/19 05:29 Phosphorus 2.6 mg/dL (2.5-4.9) 01/11/19 05:29 Magnesium 2.6 mg/dL (1.8-2.4) H 01/11/19 05:29 Total Bilirubin 0.8 mg/dL (0.2-1.0) 01/11/19 05:29 AST 20 U/L (15-37) 01/11/19 05:29 ALT 42 U/L (12-78) 01/11/19 05:29 Alkaline Phosphatase 67 U/L (45-117) 01/11/19 05:29 Troponin I 0.03 ng/mL (0.0-0.045) 01/09/19 04:20 Lipase 65 U/L (73-393) L 01/08/19 11:15 Home Medications: Alprazolam 2 mg PO QID 07/12/14 Clonidine HCl [Catapres*] 0.3 mg PO TID 07/12/14 Gabapentin 600 mg PO TID 07/12/14 Febuxostat [Uloric] 80 mg PO DAILY 07/28/14 Testost Cypionate [Depo-Testosterone*] 1 mg INJ EVERY 7TH DAY 07/28/14 Tizanidine HCl 4 mg PO TID PRN 07/28/14 B100 Balanced 1 tab PO DAILY 07/29/14 Cyanocobalamin (Vitamin B-12) [Vitamin B-12] 2,500 mcg PO DAILY 07/29/14 Trazodone HCl [Desyrel] 150 mg PO BEDTIME 07/29/14 Amlodipine Besylate [Norvasc] 10 mg PO DAILY 01/08/19 Atorvastatin Calcium [Lipitor*] 20 mg PO BEDTIME 01/08/19 Furosemide [Lasix*] 40 mg PO DAILY 01/08/19 Meloxicam [Mobic] 15 mg PO DAILY 01/08/19 Methadone HCl [Methadone HCl*] 10 mg PO TID 01/08/19 Montelukast Sodium [Singulair] 10 mg PO BEDTIME 01/08/19 Sildenafil Citrate [Viagra] 1 tab PO DAILY 01/08/19 Thyroid Tab [Bryant Thyroid*] 15 mg PO DAILY 01/08/19 Thyroid,Pork [Staking Technician Thyroid] 90 mg PO DAILY 01/08/19 Amox/Clavulanate [Augmentin 500-125 mg Tab] 500 mg PO BID #14 tab 01/12/19 Prednisone [Sterapred Ds] 10 mg PO BID #10 tab.ds.pk 01/12/19 New Medications: Amox/Clavulanate [Augmentin 500-125 mg Tab] 500 mg PO BID #14 tab Prednisone [Sterapred Ds] 10 mg PO BID #10 tab.ds.pk Diet: Regular Activity: Ad diana Followup: Saad Diane MD [Primary Care Provider] - 1 Week
== END 2019-01-12 13:08 | disposition home or self-care (01) | DRG 871 ==
LOC: ER 10:46 → ERHOLD 13:41 → 4TH 14:22 → 3RD-ICU 01-10 12:37 → 2ND 01-11 12:46
PROVIDERS: ADMIT Family Medicine; ATTEND Family Medicine
DX: A41.9 Sepsis, unspecified organism (principal); J18.1 Lobar pneumonia, unspecified organism; J96.02 Acute respiratory failure with hypercapnia; J96.01 Acute respiratory failure with hypoxia; N17.9 Acute kidney failure, unspecified; F41.9 Anxiety disorder, unspecified; I10 Essential (primary) hypertension; G47.30 Sleep apnea, unspecified; J45.909 Unspecified asthma, uncomplicated; E78.5 Hyperlipidemia, unspecified; M10.9 Gout, unspecified; E03.9 Hypothyroidism, unspecified; E66.9 Obesity, unspecified; Z68.33 Body mass index [BMI] 33.0-33.9, adult; Z88.2 Allergy status to sulfonamides; Z91.040 Latex allergy status
CPT/HCPCS: 36415; 71045; 71046; 71260; 74177; 80048; 80053; 80076; 80202; 82550; 82553; 82805; 83605; 83690; 83735; 84100; 84145; 84484; 85025; 85610; 85730; 87040; 87070; 87205; 93005; 94640; 94660; 94760; 96365; 96366; 96368; 97112; 97116; 97161; 99285; J0692; J0696; J1630; J1650; J7030; J7512; Q9967